=== PATIENT | female | born 1950 | race Caucasian/White ===

== ENCOUNTER 2019-04-26 15:20 | Emergency (ER) | payer MEDICARE ==
[2019-04-26] MEDS ORDERED: Iohexol 350* (CONTRAST) 500 ML MDV IV ONE (19:26)
--- NOTE | 2019-04-26 19:30 | ED ---
Lower Extremity - HPI Summary HPI Summary: Patient complains of right foot pain, decreased sensation and discoloration 10 days. No known trauma. Pain started 10 days ago, followed by decreased sensation starting at 8 days ago, followed by purplish discoloration of the forefoot and toes starting 6 days ago. Pain is worse with pressure and weightbearing. Patient denies any other pain, injury or symptoms. Medical history is none. Positive smoker. - History of Current Complaint Chief Complaint: EDExtremityLower Stated Complaint: RT FT SWELLING AND PAIN PER PT Time Seen by Provider: 04/26/19 17:35 Hx Obtained From: Patient, Family/Building Official Mechanism Of Injury: Unknown Onset of Pain: Days Onset/Duration: Days Severity Initially: Severe Severity Currently: Severe Pain Intensity: 8 Pain Scale Used: 0-10 Numeric Timing: Constant Location: Is Discrete @ Character Of Pain: Aching, Throbbing Associated Signs And Symptoms: Positive: Negative Aggravating Factor(s): Standing, Weight Bearing Alleviating Factor(s): Rest Able to Bear Weight: Yes - Allergies/Home Medications Allergies/Adverse Reactions: Allergies Allergy/AdvReac Type Severity Reaction Status Date / Time clindamycin Allergy Unknown Unknown Verified 04/26/19 15:26 Reaction Details Home Medications: Home Medications NK [No Home Medications Reported] 04/26/19 [History Confirmed 04/26/19] PMH/Surg Hx/FS Hx/Imm Hx Endocrine/Hematology History: Denies: Hx Anticoagulant Therapy, Hx Diabetes Cardiovascular History: Denies: Hx Hypertension History: Denies: Hx Dialysis Sensory History: Denies: Hx Eye Prosthesis Opthamlomology History: Denies: Hx Legally Blind EENT History: Denies: Hx Deafness Neurological History: Denies: Hx Developmental Delay Psychiatric History: Denies: Hx Autism - Surgical History Surgery Procedure, Year, and Place: Right shoulder surgery Infectious Disease History: No Infectious Disease History: Denies: Traveled Outside the [place] in Last 30 Days - Family History Known Family History: Positive: Unknown - Social History Alcohol Use: Occasionally Substance Use Type: Reports: None Smoking Status (MU): Heavy Every Day Tobacco Smoker Review of Systems Constitutional: Negative Eyes: Negative ENT: Negative Cardiovascular: Negative Respiratory: Negative Gastrointestinal: Negative Genitourinary: Negative Musculoskeletal: Other Skin: Negative Neurological: Negative Psychological: Normal All Other Systems Reviewed And Are Negative: Yes Physical Exam - Summary Physical Exam Summary: No dorsalis pedis or posterior tibialis pulse found on Doppler by nurse, myself for attending physician Dr. Peterson. Patient has intact fine sensation, but decreased pain sensation from mid forefoot to toes. There is splotches of purple discoloration to all toes and dorsal surface of right forefoot. Foot is cool, but not specifically cooler than left foot. Positive pulses on left foot. No indication of trauma to right foot. No erythema, deformity, pallor, swelling. Heart rate regular. Triage Information Reviewed: Yes Vital Signs On Initial Exam: Initial Vitals Temp Pulse Resp BP Pulse Ox 98.0 F 92 18 133/91 98 04/26/19 15:24 04/26/19 15:24 04/26/19 15:24 04/26/19 15:24 04/26/19 15:24 Vital Signs Reviewed: Yes Appearance: Positive: Well-Appearing Skin: Positive: Warm Head/Face: Positive: Normal Head/Face Inspection Eyes: Positive: Normal Neck: Positive: Supple Respiratory/Lung Sounds: Positive: Clear to Auscultation Cardiovascular: Positive: Normal Abdomen Description: Positive: Nontender Musculoskeletal: Positive: Normal Neurological: Positive: Normal Psychiatric: Positive: Normal AVPU Assessment: Alert - Dudley Coma Scale Best Eye Response: 4 - Spontaneous Best Motor Response: 6 - Obeys Commands Best Verbal Response: 5 - Oriented Coma Scale Total: 15 Diagnostics - Vital Signs Vital Signs Temp Pulse Resp BP Pulse Ox 04/26/19 15:24 98.0 F 92 18 133/91 98 - Laboratory Lab Results: Lab Results 04/26/19 Range/Units 16:35 C-Reactive Protein 29.93 H (<8.01) mg/L Result Diagrams: 04/27/19 01:05 Lab Statement: Any lab studies that have been ordered have been reviewed, and results considered in the medical decision making process. Lower Extremity Course/Dx - Course Course Of Treatment: Patient complains of right foot pain, decreased sensation and discoloration 10 days. No known trauma. Pain started 10 days ago, followed by decreased sensation starting at 8 days ago, followed by purplish discoloration of the forefoot and toes starting 6 days ago. Pain is worse with pressure and weightbearing. Patient denies any other pain, injury or symptoms. Medical history is none. Positive smoker. Vital signs within normal limits. Reexam at 1:34 AM 04/27. Patient able to move toes. No change in exam. Discussed patient with vascular surgery at [facility] Dr. Eldridge who recommended CTA abdomen with runoff. CTA positive for occlusion of the right common iliac artery. Reconstitution of the external iliac arteries via collaterals. Occlusion of the right mid superficial femoral artery. The right popliteal artery is not visualized. Faint contrast in the area of the distal tibial peroneal trunk. The distal portions of the tibial and peroneal arteries are not seen. This may be a timing issue. Proximal narrowing of the superior mid mesenteric artery. This appears to be about 70% in severity. Cholelithiasis. Discussed findings with vascular surgeon hooker on Dr. Eldridge at [facility] who recommended transfer. Patient has been auto accepted ER to ER with accepting physician Dr. Rg. Patient is on a heparin drip with 4000 unit bolus and then 800 unit per hour drip. - Diagnoses Provider Diagnoses: Arterial occlusion, lower extremity Discharge - Sign-Out/Discharge Documenting (check all that apply): Patient Departure Patient Received Moderate/Deep Sedation with Procedure: No - Discharge Plan Condition: Stable Disposition: TRANS HIGHER LVL OF CARE FAC Referrals: Shannon Piper DO [Primary Care Provider] - - Billing Disposition and Condition Condition: STABLE Disposition: Trans Higher Lvl of Care Fac
[2019-04-26] MEDS ORDERED: oxyCODONE TAB* 5 MG TAB PO ONE (20:15)
[2019-04-27] MEDS ORDERED: Heparin DRIP 25,000 UNITS(*) 25,000 UNITS/500 ML BAG IV SCH (00:30)
[2019-04-27] MEDS ORDERED: Heparin VIAL(*) 5000 UNITS/ML VIAL (FIVE THOUSAND) IV SCH (01:00)
[2019-04-27 01:30] LABS: ABS Lymphocytes 1.4 10^3/ul (1.0-4.8); ABS Monocytes 0.4 10^3/ul (0-0.8); ABS Neutrophils 6.7 10^3/ul (1.5-7.7); Eosinophil % 0.4 %; Hematocrit 35 % (35-47); Hemoglobin 12.7 g/dL (12.0-16.0); Lymphocyte % 16.4 %; Mean Corpuscular HGB Conc 36 g/dL (31-36); Mean Corpuscular Hemoglobin 44 pg (27-31); Mean Corpuscular Volume 121 fL (80-97); Mean Platelet Volume 8.6 fL (7.4-10.4); Nucleated Red Blood Cells % 0.1; Platelet Count 265 10^3/uL (150-450); Red Blood Count 2.91 10^6 /uL (3.70-4.87); Red Cell Distribution Width 17 % (10-15); White Blood Count 8.5 10^3/uL (3.5-10.8)
[2019-04-27 01:31] VITALS: BP 104/70
[2019-04-27 01:36] LABS: EGFR African American 78.3 (>60); EGFR Non-African American 64.7 (>60)
== END 2019-04-27 02:30 | disposition short-term general hospital (02) ==
LOC: ED 15:20
DX: I74.5 Embolism and thrombosis of iliac artery (principal); I74.3 Embolism and thrombosis of arteries of the lower extremities; K55.069 Acute infarction of intestine, part and extent unspecified; K80.20 Calculus of gallbladder without cholecystitis without obstruction; Z88.1 Allergy status to other antibiotic agents; F17.200 Nicotine dependence, unspecified, uncomplicated
CPT/HCPCS: 36415; 75635; 82565; 84520; 85025; 85730; 86140; 96365; 99283; A9270-GY; J1644; Q9967

== ENCOUNTER 2019-06-17 12:51 | Emergency (ER) | payer MEDICARE ==
[2019-06-17 15:42] VITALS: BP 112/67
--- NOTE | 2019-06-17 16:25 | ED ---
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 She comes in today after she states she fell onto her buttocks several days ago trying to transfer from her wheelchair to the commode. Her daughter is at bedside, concerned with some swelling to the right lower extremity. Denies any pain, erythema, warmth or drainage from the incision site. Patient denies any feelings of swelling, however daughter states she has noticed some swelling, was diagnosed with a hematoma after her surgery and was concerned with same. She has been denying any fevers, sweats, chills and has been feeling otherwise well. She is endorsing pain to the area which she feels tramadol is not improving her symptoms. On today's visit, she is requesting stronger pain medications and states she is not currently taking the tramadol. She does remain on clopidogrel as well as aspirin. - History of Current Complaint Chief Complaint: EDExtremityLower Stated Complaint: RECENT LEG AMPUTATION- SWELLING TO THE AREA PER PT Time Seen by Provider: 06/17/19 14:07 Hx Obtained From: Patient Mechanism Of Injury: Blunt Trauma Onset of Pain: Days Onset/Duration: Days Severity Initially: Mild Severity Currently: Mild Pain Intensity: 0 Pain Scale Used: 0-10 Numeric Location: Is Discrete @ - left buttocks Associated Signs And Symptoms: Positive: Bruising - Allergies/Home Medications Allergies/Adverse Reactions: Allergies Allergy/AdvReac Type Severity Reaction Status Date / Time clindamycin Allergy Unknown Unknown Verified 04/26/19 15:26 Reaction Details PMH/Surg Hx/FS Hx/Imm Hx Previously Healthy: Yes - Immunization History Hx Pertussis Vaccination: No Immunizations Up to Date: Yes Infectious Disease History: No Infectious Disease History: Denies: Traveled Outside the [place] in Last 30 Days - Social History Occupation: Unemployed Lives: With Family Alcohol Use: None Hx Substance Use: No Substance Use Type: Reports: None Smoking Status (MU): Current Every Day Smoker Review of Systems Negative: Fever, Chills, Fatigue, Skin Diaphoresis Negative: Chest Pain Negative: Shortness Of Breath, Cough Genitourinary: Negative Positive: no symptoms reported, see HPI Positive: Other - no swelling noted Positive: Bruising - ecchymosis to the L buttocks Neurological: Negative All Other Systems Reviewed And Are Negative: Yes Physical Exam Triage Information Reviewed: Yes Vital Signs On Initial Exam: Initial Vitals Temp Pulse Resp BP Pulse Ox 98.3 F 62 15 109/73 95 06/17/19 12:59 06/17/19 12:59 06/17/19 12:59 06/17/19 12:59 06/17/19 12:59 Vital Signs Reviewed: Yes Appearance: Positive: Well-Appearing, Well-Nourished Skin: Positive: Skin Color Reflects Adequate Perfusion, Other - ecchymotic area to the L buttocks Eyes: Positive: EOMI, ROSI, Conjunctiva Clear Neck: Positive: Supple, No Lymphadenopathy Respiratory/Lung Sounds: Positive: Breath Sounds Present Cardiovascular: Positive: RRR, Pulses are Symmetrical in both Upper and Lower Extremities Musculoskeletal: Positive: Normal, Strength/ROM Intact Neurological: Positive: Speech Normal Psychiatric: Positive: Normal, Affect/Mood Appropriate Diagnostics - Vital Signs Vital Signs Temp Pulse Resp BP Pulse Ox 06/17/19 15:42 98.3 F 58 16 112/67 97 06/17/19 15:08 59 112/67 06/17/19 15:00 54 93 06/17/19 14:38 58 110/66 95 06/17/19 14:09 59 95 06/17/19 14:08 62 125/70 95 06/17/19 12:59 98.3 F 62 15 109/73 95 - Laboratory Lab Statement: Any lab studies that have been ordered have been reviewed, and results considered in the medical decision making process. Lower Extremity Course/Dx - Course Course Of Treatment: On physical examination, there does not appear to be any gross swelling out of proportion to the right lower extremity. On physical examination, there is a 3 cm in diameter ecchymotic area to the left buttocks without evidence otherwise of trauma. Pinpoint tenderness atop the ecchymotic area without tenderness otherwise. Patient continues to be able to flex and extend at the hip joint. Denies any hip pain. Discussed these findings with the patient. I have agreed to give her 3 days of hydrocodone for a stronger pain medication following her fall. She is encouraged to recheck to her PCP on Wednesday morning for further evaluation and for any medication changes if needed. She is okay with this plan and discharge. - Diagnoses Differential Diagnosis/HQI/PQRI: Positive: Contusion Provider Diagnoses: Contusion, Ecchymosis Discharge ED - Sign-Out/Discharge Documenting (check all that apply): Patient Departure Patient Received Moderate/Deep Sedation with Procedure: No - Discharge Plan Condition: Stable Disposition: HOME Prescriptions: HYDROcodone/ACETAMIN 5-325 MG* [[place] 5-325 TAB*] 1 tab PO Q4H PRN #18 tab MDD 6 PRN Reason: Pain Referrals: Shannon Piper DO [Primary Care Provider] - Additional Instructions: Please follow up with PCP, call Wednesday for an appointment Hydrocodone may be used up to every 4 hours, however try to extend every 6 if possible Do not take Tylenol while taking this medication Do not take any NSAIDS - Billing Disposition and Condition Condition: STABLE Disposition: Home - Attestation Statements Provider Attestation: I was available for consult. This patient was seen by the MICHELLE. The patient was not presented to, seen by, or examined by me. Carlos Beaver MD
== END 2019-06-17 15:42 | disposition home or self-care (01) ==
LOC: ED 12:51
DX: S30.0XXA Contusion of lower back and pelvis, initial encounter (principal); W19.XXXA Unspecified fall, initial encounter; Y92.89 Other specified places as the place of occurrence of the external cause; F17.200 Nicotine dependence, unspecified, uncomplicated; Z79.899 Other long term (current) drug therapy; Z88.1 Allergy status to other antibiotic agents
CPT/HCPCS: 99282

== ENCOUNTER 2019-11-15 14:47 | Emergency (ER) | payer MEDICARE ==
--- OUTSIDE RECORDS SUMMARY | 2019-11-15 16:17 | XMS REPORT | Summary of Care ---
:1950 Author Organization [facility] Address [address] [place] [address] Care Team Providers Name Role Phone Shannon Piper Primary Care Provider Reason for Visit Reason Comments Leg Pain Encounter Details Date Type Department Care Team Description 10/02/2019 Office Visit [facility] Vascular José Manuel Coulter MD Ischemia of right Surgery at [address] lower extremity [facility] (Primary Dx) [address] [place] [phone] Allergies Active Allergy Reactions Severity Noted Date Comments Clindamycin/Lincomycin 04/27/2019 documented as of this encounter (statuses as of 10/02/2019) Medications Medication Sig Dispensed Refills Start Date End Date Status aspirin 325 MG tablet Take 1 tablet by 30 tablet 11 05/11/2019 05/09/2020 Active mouth daily clopidogrel (PLAVIX) Take 1 tablet by 30 tablet 05/11/2019 05/09/2020 Active 75 MG tablet mouth daily enoxaparin sodium Inject 0.4 mLs 11.2 mL 0 05/11/2019 Active (LOVENOX) 40 MG/0.4ML into the skin SOLN injection daily Additional information Patient not taking. Reported on 10/02/2019 9:20 AM folic acid (FOLVITE) 1 Take 1 tablet by 30 tablet 11 05/11/20192019 Active MG tablet mouth daily gabapentin (NEURONTIN) Take 1 capsule by 90 capsule 11 05/10/20192019 Active 300 MG capsule mouth Three times daily Additional information Patient taking differently: 600 mg Oral Three Times Daily Standard, Reported on 07/03/2019 11:24 AM levothyroxine Take 0.5 tablets by 15 tablet 11 05/11/2019 05/09/2020 Active (SYNTHROID, LEVOTHROID) mouth Daily 25 MCG tablet Magnesium Oxide (MAG-OX) Take 1 tablet by 30 tablet 11 05/11/20192019 Active 400 (241.3 Mg) MG tablet mouth daily melatonin 3 MG tablet Take 1 tablet by 0 05/10/2019 Active mouth nightly Multiple Vitamin Take 1 tablet by 30 tablet 0 05/11/2019 Active (MULTIVITAMIN) tablet mouth daily Sennosides (SENNA) 8.6 Take 2 tablets by 120 each 0 05/10/2019 Active MG TABS tablet mouth nightly as needed escitalopram (LEXAPRO) TAKE 1/2 TABLET BY 3 06/02/2019 Active 10 MG tablet MOUTH ONE TIME DAILY FOR 2 WEEKS, THEN INCREASE TO 1 TABLET BY MOUTH DAILY DULoxetine HCl 30 MG Take by mouth daily 0 09/27/2019 Active Oral Capsule Delayed Release Particles (CYMBALTA) documented as of this encounter (statuses as of 10/02/2019) Active Problems Problem Noted Date Confusion 05/04/2019 Ischemia of right lower extremity 04/27/2019 Alcohol abuse 04/27/2019 Bipolar 1 disorder 04/27/2019 Malnutrition 04/27/2019 documented as of this encounter (statuses as of 10/02/2019) Social History Tobacco Use Types Packs/Day Years Used Date Current Every Day Smoker Cigarettes 0.25 Smokeless Tobacco: Never Used Alcohol Use Drinks/Week oz/Week Comments Yes Sex Assigned at Date Recorded Not on file Job Start Date Occupation Industry Not on file Not on file Not on file Travel History Travel Start Travel End No recent travel history available. documented as of this encounter Last Filed Vital Signs Vital Sign Reading Time Taken Comments Blood Pressure 103/63 10/02/2019 9:19 AM EST Pulse 69 10/02/2019 9:19 AM EST Temperature - - Respiratory Rate - - Oxygen Saturation - - Inhaled Oxygen Concentration - - Weight - - Height - - Body Mass Index - - documented in this encounter Progress Notes Marylin, José Manuel, MD - 10/02/2019 9:00 AM EST Subjective: Patient ID: Elzbieta Brooke is a 69 y.o. female. S/P Right Above Knee Amputation Stable Main c/o today is headache which she has had for the past 2-3 days (she thinks it is from a recent medication change) Does c/o pain along the distal incision site Is getting prosthesis workup by Angie Elzbieta has a past medical history of Alcohol abuse (04/27/2019), Bipolar 1 disorder (04/27/2019), and Malnutrition (04/27/2019). Elzbieta has a past surgical history that includes Shoulder arthroscopy; art extremity lower or upper (Right, 04/27/2019); and pr amputate thigh,thru femur ( Right, 05/02/2019). Her family history is not on file. Elzbieta reports that she has been smoking cigarettes. She has been smoking about 0.25 packs per day. She has never used smokeless tobacco. She reports current alcohol use. She reports previous drug use. Elzbieta has a current medication list which includes the following prescription(s) : aspirin, clopidogrel, duloxetine, enoxaparin sodium, escitalopram, folic acid , gabapentin, levothyroxine, magnesium oxide, melatonin, multivitamin, and senna. Elzbieta is allergic to clindamycin/lincomycin. Review of Systems Constitutional: Negative. Respiratory: Negative. Skin: Negative. Neurological: Positive for headaches. Psychiatric/Behavioral: Negative. Objective: Physical Exam Vitals signs reviewed. Cardiovascular: Rate and Rhythm: Normal rate. Pulmonary: Breath sounds: Normal breath sounds. Abdominal: Palpations: Abdomen is soft. Skin: General: Skin is warm. Comments: Right AKA site is CDI No swelling or erythema Neurological: General: No focal deficit present. Mental Status: She is alert and oriented to person, place, and time. Psychiatric: Mood and Affect: Mood normal. Thought Content: Thought content normal. Assessment: S/P right above knee amputation Clinically doing well I offered to send her to pain management for her continued right thigh/ amputation site pain She has an upcoming appointment with her PMD regarding the headache Plan: F/U 4 months documented in this encounter Plan of Treatment Date Type Specialty Care Team Description 02/05/2020 Office Visit Vascular Surgery José Manuel Coulter MD [address] [phone] Health Maintenance Due Date Last Done Comments MMR Vaccines (1 of 1 - Standard 1951 series) Varicella Vaccines (1 of 2 - 1951 2-dose childhood series) DTaP,Tdap,and Td Vaccines (1 - 1958 Tdap) Breast Cancer Screening 2 years 2001 Colon Cancer Screening 10 yrs 2001 Zoster Vaccines (1 of 2) 2001 Osteoporosis Screening 2 yr 2016 Pneumococcal Vaccine: 65+ Years (1 2016 of 2 - PCV13) Influenza Vaccine 07/11/2019 Hepatitis C Screening (B. Completed 04/28/2019 [id number]) HIB Vaccines Aged Out No longer eligible based on patient's age to complete this topic Hepatitis A Vaccines Aged Out No longer eligible based on patient's age to complete this topic Hepatitis B Vaccines Aged Out No longer eligible based on patient's age to complete this topic IPV Vaccines Aged Out No longer eligible based on patient's age to complete this topic Pneumococcal Vaccine: Pediatrics Aged Out No longer eligible based on (0 to 5 Years) and At-Risk patient's age to complete Patients (6 to 64 Years) this topic documented as of this encounter Implants Implanted Type Area Software Controls Engineer Device Shelf Model / Identifier Expiration Serial / Date Lot Cov Stnt - [id number] [id number] - [id number] Left: BRITANY RIVAS 09/24/2021 [id number] / Implanted: Qty: 1 on 04/27/2019 by Erma Eldridge MD at OR [facility] [employer] / Cov Stnt - Vbx [id number] - [id number] Right: BRITANY RIVAS 09/16/2021 [id number] / Implanted: Qty: 1 on 04/27/2019 by Erma Eldridge MD at [facility] [employer] [id number] / Cov Stnt - Vbx [id number] - [id number] Right: BRITANY RIVAS 09/24/2021 [id number] / Implanted: Qty: 1 on 04/27/2019 by Erma Eldridge MD at OR [facility] [employer] [id number] / [id number] Vas Kyra - Mynx Operating Room Rn 6-7 Fr. 10/Bx - [id number] Right: NO MANUFACTURE [id number] / Implanted: Qty: 1 on 04/28/2019 by José Manuel Coulter MD at OR [facility] [employer] / [id number] documented as of this encounter Results Not on filedocumented in this encounter Visit Diagnoses Diagnosis Ischemia of right lower extremity - Primary documented in this encounter
--- OUTSIDE RECORDS SUMMARY | 2019-11-15 16:17 | XMS REPORT | Summary of Care ---
:1950 Author Organization [facility] Address [address] [place] [address] Care Team Providers Name Role Phone Shannon Piper Radha ROCHA Primary Care Provider Reason for Referral Diagnostic Radiology (Routine) Status Reason Specialty Diagnoses / Referred By Referred To Procedures Contact Contact Authorized Vascular Surgery Diagnoses Ischemia of right lower extremity Marylin, José Manuel, Vascular Surgery Procedures US Doppler Aorta/Ileofemoral Ltd (Vascular Lab Performed) Provider Based [address] [place] [id number] [place], [place] Phone: [phone] Phone: Fax: Email: [phone] [email or web address] Reason for Visit Diagnostic Radiology (Routine) Status Reason Specialty Diagnoses / Referred By Referred To Procedures Contact Contact Authorized Vascular Surgery Diagnoses Ischemia of right lower extremity Marylin, José Manuel, Vascular Surgery Procedures US Doppler Aorta/Ileofemoral Ltd (Vascular Lab Performed) Provider Based [address] [address] [place], [place] Phone: [phone] Phone: Fax: Email: [phone] [email or web address] Encounter Details Date Type Department Care Team Description 10/02/2019 Hospital Encounter [facility] Vascular Lab, Ischemia of right lower [facility] at [address] [address] Allergies Active Allergy Reactions Severity Noted Date Comments Clindamycin/Lincomycin 04/27/2019 documented as of this encounter (statuses as of 10/06/2019) Medications Medication Sig Dispensed Refills Start Date End Date Status aspirin 325 MG tablet Take 1 tablet by 30 tablet 11 05/11/2019 05/09/2020 Active mouth daily clopidogrel (PLAVIX) Take 1 tablet by 30 tablet 11 05/11/2019 05/09/2020 Active 75 MG tablet mouth [...] INCREASE TO 1 TABLET BY MOUTH DAILY documented as of this encounter (statuses as of 10/06/2019) Active Problems Problem Noted Date Confusion 05/04/2019 Ischemia of right lower extremity 04/27/2019 Alcohol abuse 04/27/2019 Bipolar 1 disorder 04/27/2019 Malnutrition 04/27/2019 documented as of this encounter (statuses as of 10/06/2019) Social History Tobacco Use Types Packs/Day Years [...] of this encounter Last Filed Vital Signs Not on filedocumented in this encounter Plan of Treatment Date Type Specialty Care Team Description 02/05/2020 Office Visit Vascular Surgery José Manuel Coulter MD [address] [address] Health Maintenance Due Date Last [...] 07/11/2019 Hepatitis C Screening (B. Completed 04/28/2019 [id number]) HIB Vaccines Aged Out No longer eligible [...] of this encounter Implants Implanted Type Area Physician Allergist Immunologist Device Shelf Model / Identifier Expiration Serial / Date Lot Cov Stnt - Vbx [id number] - [id number] Left: BRITNAY RIVAS 09/24/2021 [id number] / Implanted: Qty: 1 on 04/27/2019 by Erma Eldridge MD at OR [facility] [id number] / Cov Stnt - Vbx [id number] - [id number] Right: BRITANY RIVAS 09/16/2021 [id number] / Implanted: Qty: 1 on 04/27/2019 by Erma Eldridge MD at OR [facility] [id number] / [id number] Cov Stnt - Vbx [id number] - [id number] Right: BRITANY RIVAS 09/24/2021 [id number] / Implanted: Qty: 1 on 04/27/2019 by Erma Eldridge MD at OR [facility] [id number] / [id number] Vas Kyra - Mynx Motorcyles Final Inspector 6-7 Fr. 10/Bx - [id number] Right: NO MANUFACTURE [id number] / Implanted: Qty: 1 on 04/28/2019 by José Manuel Coulter MD at OR [facility]ial / [id number] documented as of this encounter Procedures Procedure Name Priority Date/Time Associated Diagnosis Comments VASC LAB US DOPPLER Routine 10/02/2019 8:26 AM Ischemia of right Results for this AORTA/ILEOFEMORAL EST lower extremity procedure are in LTD the results section. documented in this encounter Results US Doppler Aorta/Ileofemoral Ltd (Vascular Lab Performed) (10/02/2019 8:26 AM EST) Specimen Narrative Performed At [facility] NON RADIOLOGY IMAGING [facility], [facility] --- FINAL REPORT --- Name: LILIYA WADE : 1950 Visit: [id number] Date: 02 Oct 2019 TYPE OF TEST: Aorto-Iliac Duplex REASON FOR TEST Peripheral vascular disease, u, Personal history of nicotine d B-Mode:- (cm) 1 2 3 Aortic diameter: AP: 2.0 1.9 1.8 TV: 2.2 1.7 2.0 Common iliac diameter: Right: Left: Duplex:- PSV Stenosis ----- Aorta: (1) 55.0 Normal (2) 37.0 (3) 35.0 Right common iliac: 89.0 Normal Right external iliac: 103.0 Normal Left common iliac: 111.0 Normal Left external iliac: 113.0 Normal INTERPRETATION/FINDINGS Abdominal aorta is within normal limits, no aneurysm identified. The bilateral iliac artery stents are patent. The IVC is patent. ADDITIONAL COMMENTS I have personally reviewed the data relevant to the interpretation of this study. TECHNOLOGIST: Fred Guerrero PHYSICIAN: Electronically signed by: José Manuel Coulter 10/03/2019 11:09 AM Procedure Note Interface, Received Via [employer] - 10/03/2019 11:09 AM [facility] --- FINAL REPORT --- Name: LILIYA WADE : 1950 Visit: [id number] Date: 02 Oct 2019 TYPE OF TEST: Aorto-Iliac Duplex REASON FOR TEST Peripheral vascular disease, u, Personal history of nicotine d B-Mode:- (cm) 1 2 3 Aortic diameter: AP: 2.0 1.9 1.8 TV: 2.2 1.7 2.0 Common iliac diameter: Right: Left: Duplex:- PSV Stenosis ----- Aorta: (1) 55.0 Normal (2) 37.0 (3) 35.0 Right common iliac: 89.0 Normal Right external iliac: 103.0 Normal Left common iliac: 111.0 Normal Left external iliac: 113.0 Normal INTERPRETATION/FINDINGS Abdominal aorta is within normal limits, no aneurysm identified. The bilateral iliac artery stents are patent. The IVC is patent. ADDITIONAL COMMENTS I have personally reviewed the data relevant to the interpretation of this study. TECHNOLOGIST: Fred Guerrero PHYSICIAN: Electronically signed by: José Manuel Coulter 10/03/2019 11:09 AM Performing Organization Address City/State/Zipcode Phone Number [facility] NON RADIOLOGY IMAG[facility] [address] [place] [address] documented in this encounter Visit Diagnoses Diagnosis Ischemia of right lower extremity documented in this encounter
--- OUTSIDE RECORDS SUMMARY | 2019-11-15 16:17 | XMS REPORT | Continuity of Care Document ---
:1950 External Reference #:[id number] Author Name Shannon Piper, Address [address] [place] [id number] Problems Active Problems Provider Date Alcoholism Onset: 03/09/2019 Anxiety disorder Onset: 03/09/2019 Chronic obstructive lung disease Onset: 03/09/2019 Depressive disorder Onset: 03/09/2019 Amnesia Onset: 03/09/2019 Panic disorder Onset: 03/09/2019 Smoker Onset: 03/09/2019 Agoraphobia Onset: 03/09/2019 Recurrent brief depressive disorder Shannno Piper DO Onset: 06/30/2019 Amputated above knee Shannon KarhernesotbrendaDO Onset: 06/30/2019 Inactive Problems Serum vitamin B12 low Onset: 06/01/2019 Inactive: 06/01/2019 Postoperative pain Onset: 06/01/2019 Inactive: 06/01/2019 Hypothyroidism Onset: 06/01/2019 Inactive: 06/01/2019 Depressed mood Onset: 06/01/2019 Inactive: 06/01/2019 Adjustment disorder Onset: 06/01/2019 Inactive: 06/01/2019 Amputated above knee Onset: 06/01/2019 Inactive: 06/01/2019 Counseling Onset: 06/01/2019 Inactive: 06/01/2019 Edema of lower extremity Onset: 05/18/2019 Inactive: 05/18/2019 Nondependent alcohol abuse in remission Onset: 05/18/2019 Inactive: 05/18/2019 Ex-smoker Onset: 05/18/2019 Inactive: 05/18/2019 Social History Type Date Description Comments Sex Unknown Tobacco Use Start: Unknown End: Unknown Patient is a former smoker Tobacco Use Start: Unknown Heavy tobacco smoker (more than 10 cigarettes/day) Smoking Status Reviewed: 10/16/19 Heavy tobacco smoker (more than 10 cigarettes/day) Allergies, Adverse Reactions, Alerts Description No Known Drug Allergies Medications Active Medications SIG Qnty Indications Ordering Date Provider Right Leg Prosthesis dx: right leg 1units Shannon 10/17/2019 above the knee Karnow, DO amputation. icd10 z89.611 Breo Ellipta 1puff Inh qd 60units J44.9 Annalisa Donaldo, STUNT PERSON 08/24/2019 100-25mcg/Inh Aerosol Duloxetine HCL Take 1 Capsule By 30caps Shannon 07/28/2019 30mg Mouth Every Day Karnow, DO Caps DR Part Levothyroxine Sodium 1 daily Oral 90tabs Shannon 07/14/2019 Karnow, DO 25mcg Tablets Albuterol Sulfate 2 puff by 8.500gm [facility] 06/30/2019 HFA inhalation every 4 Karnow, DO 108(90Base) hours as needed mcg/Act Aerosol Clopidogrel Oral; Take 1 30tabs Unknown 06/13/2019 Bisulfate Tablet By Mouth 75mg Every Morning - Tablets Maximum Daily Dose Of 1 Per Day Melatonin Take 1 Tablet By 30tabs [facility] 06/13/2019 3mg Tablets Mouth AT Bedtime Karnow, DO Maximum Daily Dose Of 1 Per Day SM Aspirin Adult Low Oral; Take 1 30tabs Unknown 06/13/2019 Strength Tablet By Mouth 81mg Tablets Every Morning - DR Maximum Daily Dose Of 1 Per Day Tab-A-Giovanny Oral; Take 1 30tabs Unknown 06/13/2019 Tablets Tablet By Mouth Every Morning - Maximum Daily Dose Of 1 Per Day Gabapentin Take 1 Tablet By 90tabs Marivel Toscano, 06/09/2019 600mg Mouth Three Times MD Tablets Daily Magnesium Oxide Take 1 Tablet By 30tabs Shannon 05/22/2019 Mouth Every Karnow, DO 400(241.3mg) mg Morning - Maximum Tablets Daily Dose Of 1 Per Day Folic Acid Take 1 Tablet By 30tabs Marivel Toscano, 05/22/2019 1mg Mouth Every MD Tablets Morning - Maximum Daily Dose Of 1 Per Day Nicoderm CQ Apply once each 30units Unknown 05/22/2019 21mg/24HR day Transdermal Patches 24HR Acetaminophen 2 every 6 hours 90tabs Unknown 05/22/2019 325mg prn Oral Tablets Wheelchair N/A Unknown 05/18/2019 Misc History Medications Augmentin 1 tab by mouth twice 20tabs J44.9 Annalisa Fulton, 08/24/2019 - 500-125mg a day STUNT PERSON 09/16/2019 Tablets Lexapro 1 daily Oral; take 30tabs Unknown 06/02/2019 - 10mg 0.5tab once daily 07/28/2019 Tablets for two weeks, then increase to one tab daily Oxycodone HCL 1 daily prn Oral 5tabs Unknown 06/01/2019 - 5mg 07/28/2019 Tablets Aspirin Ec 1 daily Oral 90tabs Unknown 05/22/2019 - 81mg 06/13/[address] Clopidogrel 1 daily Oral 90tabs Unknown 05/22/2019 - Bisulfate 06/13/2019 75mg Tablets Lovenox Inject daily 5units Unknown 05/22/2019 - 40mg/0.4ML Subcutaneous 06/01/2019 Solution Melatonin 1 at bedtime Oral 90caps Unknown 05/22/2019 - 3mg 06/13/2019 Capsules Multiple Vitamin 1 daily Oral 30tabs Unknown 05/22/2019 - 06/13/2019 Tablets Oxycodone HCL 1 every 6 hours prn 40tabs Unknown 05/22/2019 - 5mg Oral 06/01/2019 Tablets Gabapentin 1 three times daily 90caps Unknown 05/22/2019 - 300mg Oral 09/16/2019 Capsules Nicotrol 1 Q1-3 hrs 168units Unknown 05/22/2019 - 10mg Inhalation 09/16/2019 Inhaler Immunizations Description No Information Available Vital Signs Date Vital Result Comment 10/16/2019 1:19pm BP Systolic 122 mmHg BP Diastolic 64 mmHg Heart Rate 58 /min Body Temperature 98.9 F O2 % BldC Oximetry 96 % 08/24/2019 1:53pm BP Systolic 110 mmHg BP Diastolic 68 mmHg Heart Rate 70 /min Body Temperature 97.3 F O2 % BldC Oximetry 98 % Results Test Acquired Date Facility Test Result H/L Range Note MCHC 06/01/2019 N2N/CCD Import MCHC 33 g/dL 31-36 g/dL MCV 06/01/2019 N2N/CCD Import MCV 104 fL High 80-97 fL [place]# 06/01/2019 N2N/CCD Import [place]# 0.3 0-0.8 10 10_3/ul 3/ul [place]% 06/01/2019 N2N/CCD Import [place]% 5.4 % 0 - 10 % MPV 06/01/2019 N2N/CCD Import MPV 8.6 fL 7.4-10.4 fL Neut# 06/01/2019 N2N/CCD Import Neut# 3.1 1.5-7.7 10_3/ul 10 3/ul Neut% 06/01/2019 N2N/CCD Import Neut% 51.1 % 45 - 70 % NRBC# 06/01/2019 N2N/CCD Import NRBC# 0.0 10_3/ul NRBC% 06/01/2019 N2N/CCD Import NRBC% 0.1 _ Platelets 06/01/2019 N2N/CCD Import Platelets 375 150-450 10_3/uL 10 3/uL Potassium 06/01/2019 N2N/CCD Import Potassium 4.4 mmol/L 3.5-5.0 mmol/L RBC 06/01/2019 N2N/CCD Import RBC 3.82 3.70-4.87 10_6_/uL 10 6 /uL RDW 06/01/2019 N2N/CCD Import RDW 18 % High 10-15 % Sodium 06/01/2019 N2N/CCD Import Sodium 138 mmol/L 135-145 mmol/L T4, Free 06/01/2019 N2N/CCD Import T4, Free 0.81 ng/dL 0.61-1.12 ng/dL TSH 06/01/2019 N2N/CCD Import TSH 2.55 0.34-5.60 mcIU/mL mcIU/mL Vitamin B12 06/01/2019 N2N/CCD Import Vitamin B12 209 pg/mL 180-914 pg/mL WBC 06/01/2019 N2N/CCD Import WBC 6.0 3.5-10.8 10_3/uL 10 3/uL Anion Gap 06/01/2019 N2N/CCD Import Anion Gap 8 mmol/L 2-11 mmol/L Baso# 06/01/2019 N2N/CCD Import Baso# 0.1 0-0.2 10 10_3/ul 3/ul Baso% 06/01/2019 N2N/CCD Import Baso% 1.0 % 0 - 2 % BUN 06/01/2019 N2N/CCD Import BUN 10 mg/dL 6-24 mg/dL BUN/Creat Ratio 06/01/2019 N2N/CCD Import BUN/Creat Ratio 17.2 _ 8-20 Calcium 06/01/2019 N2N/CCD Import Calcium 9.1 mg/dL 8.6-10.3 mg/dL Chloride 06/01/2019 N2N/CCD Import Chloride 103 mmol/L 101-111 mmol/L Co2 06/01/2019 N2N/CCD Import Co2 27 mmol/L 22-32 mmol/L Creatinine 06/01/2019 N2N/CCD Import Creatinine 0.58 mg/dL 0.51-0.95 mg/dL Eosin# 06/01/2019 N2N/CCD Import Eosin# 0.5 0-0.6 10 10_3/ul 3/ul Eosin% 06/01/2019 N2N/CCD Import Eosin% 8.3 % High 0 - 5 % GFR Afr Amer 06/01/2019 N2N/CCD Import GFR Afr Amer 125.1 _ >60 GFR Non Afr 06/01/2019 N2N/CCD Import GFR Non Afr 103.4 _ >60 Amer Amer Glucose 06/01/2019 N2N/CCD Import Glucose 80 mg/dL 70-100 mg/dL Hematocrit 06/01/2019 N2N/CCD Import Hematocrit 40 % 35-47 % Hemoglobin 06/01/2019 N2N/CCD Import Hemoglobin 13.1 g/dL 12.0-16.0 g/dL Lymph# 06/01/2019 N2N/CCD Import Lymph# 2.1 1.0-4.8 10_3/ul 10 3/ul Lymph% 06/01/2019 N2N/CCD Import Lymph% 34.2 % 20 - 45 % MCH 06/01/2019 N2N/CCD Import MCH 34 pg High 27-31 pg 18-Outside labs 05/04/2019 N2N/CCD Import TSH Thyroid 13.100 Multiple choic Stimulating Horm Vitamin B12 Ser Mass/Vol 228 Folate Serum >20.00 CBC W/Auto Differential 05/04/2019 N2N/CCD Import White Blood Count Ser 6.0 Auto CNT RBC Red Blood Count-Auto 2.58 Hemoglobin Blood 9.3 Hematocrit 28.2 Low 35-45 MCV (Corpuscular Volume) 109.1 MCH (Corpuscular Hemoglobin) 36.2 MCHC (Corpuscular Hemog Conc) 33.2 RDW 23.3 Platelet Count Blood Auto CNT 509 Neutrophils 66 Laboratory test finding 05/04/2019 N2N/CCD Import Ammonia Blood 28 Laboratory test finding 05/04/2019 N2N/CCD Import T4 Free Thyroxine 0.97 Mass/Vol Thyroglobulin & Tpo Abs 05/04/2019 N2N/CCD Import Thyroid Peroxidase AB 0.3 Serum QN S/PL Thyroglobulin AB Ser QN 37.3 Baso# 04/27/2019 N2N/CCD Import Baso# 0.0 10_3/ul 0-0.2 10 3/ul Baso% 04/27/2019 N2N/CCD Import Baso% 0.4 % 0 - 2 % BUN 04/27/2019 N2N/CCD Import BUN 21 mg/dL 6-24 mg/dL Creatinine 04/27/2019 N2N/CCD Import Creatinine 0.87 mg/dL 0.51-0.95 mg/dL Eosin# 04/27/2019 N2N/CCD Import Eosin# 0.0 10_3/ul 0-0.6 10 3/ul Eosin% 04/27/2019 N2N/CCD Import Eosin% 0.4 % 0 - 5 % GFR Afr Amer 04/27/2019 N2N/CCD Import GFR Afr Amer 78.3 _ >60 GFR Non Afr Amer 04/27/2019 N2N/CCD Import GFR Non Afr Amer 64.7 _ >60 Hematocrit 04/27/2019 N2N/CCD Import Hematocrit 35 % 35-47 % Hemoglobin 04/27/2019 N2N/CCD Import Hemoglobin 12.7 g/dL 12.0-16.0 g/dL Lymph# 04/27/2019 N2N/CCD Import Lymph# 1.4 10_3/ul 1.0-4.8 10 3/ul WBC 04/27/2019 N2N/CCD Import WBC 8.5 10_3/uL 3.5-10.8 10 3/uL RDW 04/27/2019 N2N/CCD Import RDW 17 % High 10-15 % Lymph% 04/27/2019 N2N/CCD Import Lymph% 16.4 % Low 20 - 45 % MCH 04/27/2019 N2N/CCD Import MCH 44 pg High 27-31 pg MCHC 04/27/2019 N2N/CCD Import MCHC 36 g/dL 31-36 g/dL MCV 04/27/2019 N2N/CCD Import MCV 121 fL High 80-97 fL [place]# 04/27/2019 N2N/CCD Import [place]# 0.4 10_3/ul 0-0.8 10 3/ul [place]% 04/27/2019 N2N/CCD Import [place]% 4.2 % 0 - 10 % MPV 04/27/2019 N2N/CCD Import MPV 8.6 fL 7.4-10.4 fL Neut# 04/27/2019 N2N/CCD Import Neut# 6.7 10_3/ul 1.5-7.7 10 3/ul Neut% 04/27/2019 N2N/CCD Import Neut% 78.6 % High 45 - 70 % NRBC# 04/27/2019 N2N/CCD Import NRBC# 0.0 10_3/ul NRBC% 04/27/2019 N2N/CCD Import NRBC% 0.1 _ RBC 04/27/2019 N2N/CCD Import RBC 2.91 Low 3.70-4.87 10_6_/uL 10 6 /uL PTT 04/27/2019 N2N/CCD Import PTT 28.4 seconds 26.0-38.0 seconds Platelets 04/27/2019 N2N/CCD Import Platelets 265 10_3/uL 150-450 10 3/uL [place]% 04/26/2019 N2N/CCD Import [place]% 4.3 % 0 - 10 % MPV 04/26/2019 N2N/CCD Import MPV 8.5 fL 7.4-10.4 fL Neut# 04/26/2019 N2N/CCD Import Neut# 6.4 10_3/ul 1.5-7.7 10 3/ul Neut% 04/26/2019 N2N/CCD Import Neut% 76.2 % High 45 - 70 % NRBC# 04/26/2019 N2N/CCD Import NRBC# 0.0 10_3/ul NRBC% 04/26/2019 N2N/CCD Import NRBC% 0.1 _ Pathologist 04/26/2019 N2N/CCD Import Pathologist See Comments Review Review Platelets 04/26/2019 N2N/CCD Import Platelets 325 10_3/uL 150-450 10 3/uL Potassium 04/26/2019 N2N/CCD Import Potassium 3.3 mmol/L Low 3.5-5.0 mmol/L Protein, Total 04/26/2019 N2N/CCD Import Protein, Total 6.4 g/dL 6.4- 8.9 g/dL RBC 04/26/2019 N2N/CCD Import RBC 3.07 Low 3.70-4.87 10_6_/uL 10 6 /uL RDW 04/26/2019 N2N/CCD Import RDW 17 % High 10-15 % Sodium 04/26/2019 N2N/CCD Import Sodium 136 mmol/L 135-145 mmol/L Triglycerides 04/26/2019 N2N/CCD Import Triglycerides 132 mg/dL TSH 04/26/2019 N2N/CCD Import TSH 4.88 mcIU/mL 0.34-5.60 mcIU/mL Vitamin B12 04/26/2019 N2N/CCD Import Vitamin B12 86 pg/mL Low 180-914 pg/mL WBC 04/26/2019 N2N/CCD Import WBC 8.4 10_3/uL 3.5-10.8 10 3/uL Baso% 04/26/2019 N2N/CCD Import Baso% 0.4 % 0 - 2 % Baso# 04/26/2019 N2N/CCD Import Baso# 0.0 10_3/ul 0-0.2 10 3/ul Ast 04/26/2019 N2N/CCD Import Ast 45 U/L High 13-39 U/L Anion Gap 04/26/2019 N2N/CCD Import Anion Gap 12 mmol/L High 2-11 mmol/L Alt 04/26/2019 N2N/CCD Import Alt 17 U/L 7-52 U/L Alk Phos 04/26/2019 N2N/CCD Import Alk Phos 99 U/L 34-104 U/L Albumin 04/26/2019 N2N/CCD Import Albumin 3.8 g/dL 3.2-5.2 g/dL A/G Ratio 04/26/2019 N2N/CCD Import A/G Ratio 1.5 _ 1-3 Bilirubin Total 04/26/2019 N2N/CCD Import Bilirubin Total 1.30 mg/dL High 0.2-1.0 mg/dL BUN 04/26/2019 N2N/CCD Import BUN 18 mg/dL 6-24 mg/dL BUN/Creat Ratio 04/26/2019 N2N/CCD Import BUN/Creat Ratio 22.5 _ High 8- 20 Calcium 04/26/2019 N2N/CCD Import Calcium 9.2 mg/dL 8.6-10.3 mg/dL Chloride 04/26/2019 N2N/CCD Import Chloride 93 mmol/L Low 101-111 mmol/L Cholesterol 04/26/2019 N2N/CCD Import Cholesterol 177 mg/dL Co2 04/26/2019 N2N/CCD Import Co2 31 mmol/L 22-32 mmol/L Creatinine 04/26/2019 N2N/CCD Import Creatinine 0.80 mg/dL 0.51-0.95 mg/dL CRP 04/26/2019 N2N/CCD Import CRP 29.93 mg/L High <8.01 mg/L Eosin# 04/26/2019 N2N/CCD Import Eosin# 0.1 10_3/ul 0-0.6 10 3/ul Eosin% 04/26/2019 N2N/CCD Import Eosin% 0.6 % 0 - 5 % Folic Acid 04/26/2019 N2N/CCD Import Folic Acid 2.82 ng/mL >3.99 ng/mL GFR Afr Amer 04/26/2019 N2N/CCD Import GFR Afr Amer 86.3 _ >60 GFR Non Afr Amer 04/26/2019 N2N/CCD Import GFR Non Afr Amer 71.3 _ >60 Globulin 04/26/2019 N2N/CCD Import Globulin 2.6 g/dL 2-4 g/dL Glucose 04/26/2019 N2N/CCD Import Glucose 123 mg/dL High 70-100 mg/dL HDL Cholesterol 04/26/2019 N2N/CCD Import HDL Cholesterol 38.6 mg/dL Hematocrit 04/26/2019 N2N/CCD Import Hematocrit 37 % 35-47 % Hemoglobin 04/26/2019 N2N/CCD Import Hemoglobin 13.1 g/dL 12.0-16.0 g/dL Hemoglobin A1c 04/26/2019 N2N/CCD Import Hemoglobin A1c 5.0 % 4.0-5.6 % LDL Cholesterol 04/26/2019 N2N/CCD Import LDL Cholesterol 112 mg/dL Lymph# 04/26/2019 N2N/CCD Import Lymph# 1.5 10_3/ul 1.0-4.8 10 3/ul Lymph% 04/26/2019 N2N/CCD Import Lymph% 18.5 % Low 20 - 45 % Macrocytosis 04/26/2019 N2N/CCD Import Macrocytosis 3+ MCH 04/26/2019 N2N/CCD Import MCH 43 pg High 27-31 pg MCHC 04/26/2019 N2N/CCD Import MCHC 35 g/dL 31-36 g/dL MCV 04/26/2019 N2N/CCD Import MCV 122 fL High 80-97 fL [place]# 04/26/2019 N2N/CCD Import [place]# 0.4 10_3/ul 0-0.8 10 3/ul Procedures Description No Information Available Medical Devices Description No Information Available Encounters Type Date Location Provider Dx Diagnosis Office Visit 10/16/2019 [facility] Shannon Piper, DO Z89.611 Acquired absence of 1:15p right leg above knee F33.8 Other recurrent depressive disorders R51 Headache D51.9 Vitamin B12 deficiency anemia, unspecified E03.9 Hypothyroidism, unspecified R41.3 Other amnesia Office Visit 08/24/2019 1:30p [facility] SHELDON Arriaga J44.9 Chronic obstructive pulmonary disease, unspecified J44.1 Chronic obstructive pulmonary disease w (acute) exacerbation Office Visit 07/28/2019 3:45p [facility] Shannon Piper, Z89.611 Acquired absence DO of right leg above knee M79.604 Pain in right leg F33.8 Other recurrent depressive disorders Office Visit 06/30/2019 11:45a [facility] Adeel Piper, Z89.611 Acquired absence DO of right leg above knee F33.8 Other recurrent depressive disorders R69 Illness, unspecified Assessments Date Code Description Provider 10/16/2019 Z89.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 Shannon Mckeew , DO 10/16/2019 F33.8 Other recurrent depressive disorders Shannon Mckeew, DO 10/16/2019 R51 Headache Shannon Vladimirnow, DO 10/16/2019 D51.9 Vitamin B12 deficiency anemia, unspecified Shannon Vladimirnow , DO 10/16/2019 E03.9 Hypothyroidism, unspecified Shannon Karnow, DO 10/16/2019 R41.3 Other amnesia Shannon Karnow, DO 08/24/2019 J44.9 Chronic obstructive pulmonary disease, SHELDON Arriaga unspecified 08/24/2019 J44.1 Chronic obstructive pulmonary disease with SHELDON Arriaga (acute) exacerbation 07/28/2019 Z89.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 Shannon Vladimirnow , DO 07/28/2019 M79.604 Pain in right leg Shannon Vladimirnow, DO 07/28/2019 F33.8 Other recurrent depressive disorders Shannonedwina Piper, DO 06/30/2019 Z89.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 Shannonedwina Piper , DO 06/30/2019 F33.8 Other recurrent depressive disorders Shannonedwina Piper, DO 06/30/2019 R69 Illness, unspecified Shannon Vladimirhernandez, Plan of Treatment Future Appointment(s):01/16/2020 1:45 pm - Shannon Piper DO at [facility] - Shannonedwina Piper, DOZ89.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New Orders:Physical Therapy Evaluate And Treat, Ordered: 07/28/19M79.604 Pain in right legF33.8 Other recurrent depressive disordersAllNew Medication: Duloxetine HCL 30 mg - Take 1 Capsule By Mouth Every Day Functional Status Description No Information Available Mental Status Description No Information Available Referrals Description No Information Available
--- OUTSIDE RECORDS SUMMARY | 2019-11-15 16:17 | XMS REPORT | Continuity of Care Document ---
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 Shannon Piper DO Onset: 06/30/2019 Amputated above knee Shannon KarhernestobrendaDO Onset: 06/30/2019 Inactive Problems Serum vitamin B12 [...] 1puff Inh qd 60units J44.9 Annalisa Donaldo, COUNTY ADMINISTRATOR 08/24/2019 100-25mcg/Inh Aerosol Duloxetine HCL Take 1 Capsule By 30caps Shannon 07/28/2019 30mg Mouth Every Day Karnow, DO Caps DR Part Levothyroxine Sodium 1 daily Oral 90tabs Shannon 07/14/2019 Karnow, DO 25mcg Tablets Albuterol Sulfate 2 puff by 8.500gm [facility] 06/30/2019 HFA inhalation every 4 Karnow, DO 108(90Base) hours as needed mcg/Act Aerosol Clopidogrel Oral; Take 1 30tabs Unknown 06/13/2019 Bisulfate Tablet By Mouth 75mg Every Morning - Tablets Maximum Daily Dose Of 1 Per Day Melatonin Take 1 Tablet By 30tabs [facility] 06/13/2019 3mg Tablets Mouth AT [...] Annalisa Fulton, 08/24/2019 - 500-125mg a day [employer]MIN[employer] 09/16/2019 Tablets Lexapro 1 daily Oral; take [...] BldC Oximetry 98 % Results Test Acquired Facility Test Result H/L Range Note Date MCHC 06/01/2019 N2N/CCD Import MCHC 33 g/dL 31-36 g/dL MCV 06/01/2019 N2N/CCD Import MCV 104 fL High 80-97 fL Imperial# 06/01/2019 N2N/CCD Import Imperial# 0.3 0-0.8 10 10_3/ul 3/ul Imperial% 06/01/2019 N2N/CCD Import Imperial% 5.4 % 0 - 10 % MPV [...] mg/dL BUN/Creat Ratio 06/01/2019 N2N/CCD Import BUN/Creat 17.2 _ 8-20 Ratio Calcium 06/01/2019 N2N/CCD Import Calcium 9.1 mg/dL [...] Amer 125.1 _ >60 GFR Non Afr Amer 06/01/2019 N2N/CCD Import GFR Non Afr 103.4 _ >60 Amer Glucose 06/01/2019 N2N/CCD Import Glucose 80 mg/dL 70-100 mg/dL Hematocrit 06/01/2019 N2N/CCD Import Hematocrit 40 % 35-47 % Hemoglobin 06/01/2019 N2N/CCD Import Hemoglobin 13.1 g/dL 12.0-16.0 g/dL Lymph# 06/01/2019 N2N/CCD Import Lymph# 2.1 1.0-4.8 10_3/ul 10 3/ul Lymph% 06/01/2019 N2N/CCD Import Lymph% 34.2 % 20 - 45 % MCH 06/01/2019 N2N/CCD Import MCH 34 pg High 27-31 pg Thyroglobulin & 05/04/2019 N2N/CCD Import Thyroid 0.3 Tpo Abs Serum Peroxidase AB QN S/PL Thyroglobulin AB Ser QN 37.3 Laboratory test finding 05/04/2019 N2N/CCD Import T4 Free Thyroxine 0.97 Mass/Vol Laboratory test finding 05/04/2019 N2N/CCD Import Ammonia Blood 28 CBC W/Auto Differential 05/04/2019 N2N/CCD Import White Blood Count Ser 6.0 Auto CNT RBC Red Blood Count-Auto 2.58 Hemoglobin Blood 9.3 Hematocrit 28.2 Low 35-45 MCV (Corpuscular Volume) 109.1 MCH (Corpuscular Hemoglobin) 36.2 MCHC (Corpuscular Hemog Conc) 33.2 RDW 23.3 Platelet Count Blood Auto CNT 509 Neutrophils 66 18-Outside labs 05/04/2019 N2N/CCD Import TSH Thyroid Stimulating 13.100 Multiple choic Horm Vitamin B12 Ser Mass/Vol 228 Folate Serum >20.00 Procedures Description No Information Available Medical Devices [...] (acute) exacerbation Office Visit 07/28/2019 3:45p CFM Adeel Piper, Z89.611 Acquired absence DO [...] Karnow, DO 10/16/2019 R41.3 Other amnesia Shannon Mckeew, DO 08/24/2019 J44.9 Chronic obstructive pulmonary disease, SHELDON Arriaga unspecified 08/24/2019 J44.1 Chronic obstructive pulmonary disease with SHELDON Arriaga (acute) exacerbation 07/28/2019 Z89.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 Shannon Vladimirnow , DO 07/28/2019 M79.604 Pain in right leg Shannon Vladimirnow, DO 07/28/2019 F33.8 Other recurrent depressive disorders Shannon Piper, DO 06/30/2019 Z89.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 with pain although possibly somewhat improved with GabapentinOffered pain management clinic but patient declines at this time Unclear if Duloxetine had any additional pain management [id number] Other recurrent depressive disordersComments:Improved mood with Duloxetine per family , patient not so sure but per my exam and interaction, I would also conclude her mood has improvedcontinue [id number] HeadacheComments:Somewhat new for her to have headachesNo red flagsShe had normal CT head April 2019Neuro exam reassuringI think it is ok to monitor, take OTC meds, drink plenty of fluids and if change or worsen, we will need to do moreD51.9 Vitamin B12 deficiency anemia, unspecifiedComments:Hx of low B12, then normalized without treatment but was on IV in hospital Labs [id number] Hypothyroidism, unspecifiedComments: Due for TSHR41.3 Other amnesiaComments:Short term memory decreased per patient and family Nothing acute, nothing interferring much Have ordered some labs and will monitor for progressionAllComments:3 month follow up, sooner if needed Functional Status Description No Information Available Mental Status Description No Information Available Referrals Description No Information Available
[2019-11-15] MEDS ORDERED: DOXYcycline CAP(*) 100 MG PO ONE (16:43)
[2019-11-15] MEDS ORDERED: Sulfamethox/Trimethoprim DS 800/160* TAB PO ONE (16:44)
[2019-11-15] MEDS ORDERED: Cephalexin CAP* 500 MG PO ONE (16:44)
[2019-11-15 16:57] LABS: ABS Basophils 0.1 10^3/ul (0-0.2); ABS Eosinophils 0.3 10^3/ul (0-0.6); ABS Lymphocytes 2.6 10^3/ul (1.0-4.8); ABS Monocytes 0.4 10^3/ul (0-0.8); ABS Neutrophils 3.9 10^3/ul (1.5-7.7); Eosinophil % 3.8 %; Hematocrit 43 % (35-47); Hemoglobin 14.6 g/dL (12.0-16.0); Mean Corpuscular HGB Conc 34 g/dL (31-36); Mean Corpuscular Hemoglobin 32 pg (27-31); Mean Corpuscular Volume 93 fL (80-97); Platelet Count 246 10^3/uL (150-450); Red Blood Count 4.59 10^6 /uL (3.70-4.87); Red Cell Distribution Width 13 % (10-15); White Blood Count 7.3 10^3/uL (3.5-10.8)
[2019-11-15 17:19] LABS: Albumin 3.9 g/dL (3.2-5.2); Albumin/Globulin Ratio 1.6 (1-3); C Reactive Protein 4.07 mg/L (<8.01); Calcium 9.2 mg/dL (8.6-10.3); EGFR African American 122.6 (>60); EGFR Non-African American 101.4 (>60); Globulin 2.5 g/dL (2-4); Potassium 4.2 mmol/L (3.5-5.0); Total Bilirubin 0.2 mg/dL (0.2-1.0); Total Protein 6.4 g/dL (6.4-8.9)
[2019-11-15 17:57] VITALS: BP 119/53
--- NOTE | 2019-11-15 20:58 | ED ---
Skin Complaint - HPI Summary HPI Summary: Patient is a 69 y/o F presenting to [facility] with concerns of possible skin infection at her right above knee amputation. She notes an area of erythema and reports purulent drainage. Patient also states that she has had a low grade fever with a temp of 99.3 F. Sx initially onset around 4 days ago. Amputation was done April 2019, patient was last evaluated by surgeon who performed the procedure towards the end of September 2019. Patient was recently evaluated by PCP who noted that the area of erythema had increased. She was advised to come to ED for evaluation. Patient has been applying prescribed antibiotic cream to the site. N/V/D and chills are denied. Home medications and allergies are reviewed. - History of Current Complaint Chief Complaint: EDGeneral Time Seen by Provider: 11/15/19 16:30 Stated Complaint: POSS INFECTION WHERE LEG WAS AMPUTATED PER PT Hx Obtained From: Patient Onset/Duration: Started Days Ago, Still Present Skin Exposure Onset/Duration: Days Ago Timing: Constant, Lasting Days Pain Intensity: 0 Pain Scale Used: 0-10 Numeric Skin Location: Other: - right above knee amputation area Character: Redness Associated Signs & Symptoms: Fever - low grade, Drainage - Allergy/Home Medications Allergies/Adverse Reactions: Allergies Allergy/AdvReac Type Severity Reaction Status Date / Time clindamycin Allergy Unknown Unknown Verified 11/15/19 14:58 Reaction Details PMH/Surg Hx/FS Hx/Imm Hx Sensory History: Denies: Hx Legally Blind, Hx Deafness Opthamlomology History: Denies: Hx Legally Blind EENT History: Denies: Hx Deafness - Surgical History Surgery Procedure, Year, and Place: right above knee amputation Infectious Disease History: No Infectious Disease History: Denies: Traveled Outside the [place] in Last 30 Days - Family History Known Family History: Negative: Blood Disorder - Social History Alcohol Use: None Hx Substance Use: No Substance Use Type: Reports: None Smoking Status (MU): Heavy Every Day Tobacco Smoker Review of Systems Positive: Fever - low grade . Negative: Chills Negative: Vomiting, Diarrhea, Nausea Skin: Other - positive - area of erythema to right above knee amputation and drainage All Other Systems Reviewed And Are Negative: Yes Physical Exam - Summary Physical Exam Summary: Constitutional: Well-developed, Well-nourished, Alert. (-) Distressed Skin: Right leg stump has a 1 cm by 1 cm area of erythema. No purulent drainage noted. Incision is intact without any signs of infection. No fluctuance and no induration noted. HENT: Normocephalic; Atraumatic Eyes: Conjunctiva normal Neck: Musculoskeletal ROM normal neck. (-) JVD, (-) Stridor, (-) Tracheal deviation Cardio: Rhythm regular, rate normal, Heart sounds normal; Intact distal pulses; Radial pulses are 2+ and symmetric. (-) Murmur Pulmonary/Chest wall: Effort normal. (-) Respiratory distress, (-) Wheezes, (-) Rales Abd: Soft, (-) tenderness, (-) Distension, (-) Guarding, (-) Rebound Musculoskeletal: (-) Edema Lymph: (-) Cervical adenopathy Neuro: Alert, Oriented x3 Psych: Mood and affect Normal Triage Information Reviewed: Yes Vital Signs On Initial Exam: Initial Vitals Temp Pulse Resp BP Pulse Ox 98.5 F 74 19 124/70 94 11/15/19 14:54 11/15/19 14:54 11/15/19 14:54 11/15/19 14:54 11/15/19 14:54 Vital Signs Reviewed: Yes Procedures - Sedation Patient Received Moderate/Deep Sedation with Procedure: No Diagnostics - Vital Signs Vital Signs Temp Pulse Resp BP Pulse Ox 11/15/19 17:56 65 119/53 94 11/15/19 17:55 97.6 F 62 16 119/53 95 11/15/19 17:05 66 95 11/15/19 17:04 65 124/70 95 11/15/19 14:54 98.5 F 74 19 124/70 94 - Laboratory Lab Results: Lab Results 11/15/19 11/15/19 Range/Units 16:49 16:49 WBC 7.3 (3.5-10.8) 10^3/uL RBC 4.59 (3.70-4.87) 10^6 /uL Hgb 14.6 (12.0-16.0) g/dL Hct 43 (35-47) % MCV 93 (80-97) fL MCH 32 H (27-31) pg MCHC 34 (31-36) g/dL RDW 13 (10-15) % Plt Count 246 (150-450) 10^3/uL MPV 8.0 (7.4-10.4) fL Neut % (Auto) 53.3 % Lymph % (Auto) 36.0 % Green % (Auto) 5.9 % Eos % (Auto) 3.8 % Baso % (Auto) 1.0 % Absolute Neuts (auto) 3.9 (1.5-7.7) 10^3/ul Absolute Lymphs (auto) 2.6 (1.0-4.8) 10^3/ul Absolute Monos (auto) 0.4 (0-0.8) 10^3/ul Absolute Eos (auto) 0.3 (0-0.6) 10^3/ul Absolute Basos (auto) 0.1 (0-0.2) 10^3/ul Absolute Nucleated RBC 0.0 10^3/ul Nucleated RBC % 0.0 Sodium 139 (135-145) mmol/L Potassium 4.2 (3.5-5.0) mmol/L Chloride 108 (101-111) mmol/L Carbon Dioxide 27 (22-32) mmol/L Anion Gap 4 (2-11) mmol/L BUN 13 (6-24) mg/dL Creatinine 0.59 (0.51-0.95) mg/dL Est GFR ( Amer) 122.6 (>60) Est GFR (Non-Af Amer) 101.4 (>60) BUN/Creatinine Ratio 22.0 H (8-20) Glucose 124 H (70-100) mg/dL Calcium 9.2 (8.6-10.3) mg/dL Total Bilirubin 0.20 (0.2-1.0) mg/dL AST 55 H (13-39) U/L ALT 61 H (7-52) U/L Alkaline Phosphatase 102 (34-104) U/L C-Reactive Protein 4.07 (<8.01) mg/L Total Protein 6.4 (6.4-8.9) g/dL Albumin 3.9 (3.2-5.2) g/dL Globulin 2.5 (2-4) g/dL Albumin/Globulin Ratio 1.6 (1-3) Result Diagrams: 11/15/19 16:49 11/15/19 16:49 Lab Statement: Any lab studies that have been ordered have been reviewed, and results considered in the medical decision making process. Course/Dx - Course Course Of Treatment: Patient is here with a small area of cellulitis to her extremity stump. Patient started on mupirocin ointment yesterday but the area got slightly larger. Patient has no systemic signs of infection. Patient's exam is overall benign with no areas of fluctuance, induration, drainage. Patient had laboratory performed showed a normal CRP and WBC count. Patient was started on Keflex and Bactrim for double coverage. - Diagnoses Provider Diagnoses: Cellulitis of right lower extremity Discharge ED - Sign-Out/Discharge Documenting (check all that apply): Patient Departure - discharge - Discharge Plan Condition: Stable Disposition: HOME Prescriptions: Cephalexin CAP* [Keflex CAP*] 500 mg PO TID 7 Days #21 cap Sulfamethox/Trimethoprim DS* [Bactrim DS 800/160 TAB*] 1 tab PO BID 7 Days #14 tab Patient Education Materials: Cellulitis (ED) Referrals: Shannon Piper DO [Primary Care Provider] - 2 Days Additional Instructions: PLEASE RETURN TO ED FOR SIGNIFICANT ENLARGEMENT OF THE RED AREA ON YOUR STUMP, PUS FROM THE AREA, FEVER, CHILLS, OR ANY OTHER CONCERNING SYMPTOMS. FOLLOW UP WITH YOUR PRIMARY CARE PHYSICIAN WITHIN TWO DAYS. START TAKING THE ANTIBIOTICS YOU HAVE BEEN PRESCRIBED. - Billing Disposition and Condition Condition: STABLE Disposition: Home - Attestation Statements Document Initiated by Nick: Yes Documenting Tristanibe: CRUZ HANLEY Provider For Whom Nick is Documenting (Include Credential): LEOBARDO DAN MD Scribe Attestation: CRUZ Amador, scribed for LEOBARDO DAN MD on 11/15/19 at 2137. Scribe Documentation Reviewed: Yes Provider Attestation: The documentation as recorded by the CRUZ qiu accurately reflects the service I personally performed and the decisions made by me, LEOBARDO DAN MD Status of Scribe Document: Viewed
== END 2019-11-15 17:55 | disposition home or self-care (01) ==
LOC: ED 14:47
DX: L03.115 Cellulitis of right lower limb (principal); F17.200 Nicotine dependence, unspecified, uncomplicated; Z89.611 Acquired absence of right leg above knee; Z88.1 Allergy status to other antibiotic agents
CPT/HCPCS: 36415; 80053; 85025; 86140; 99282; A9270-GY